=== PATIENT | male | born 1990 | race Two or more races ===

== ENCOUNTER 2022-11-10 15:14 | Emergency (ER) | payer OTHER ==
[~2022-11-10] VITALS: Ht 180.3 cm; Wt 91.2 kg
[2022-11-10 18:06] VITALS: BP 143/103; TEMP 98.8; O2SAT 98
== END 2022-11-10 18:06 ==
LOC: ER 15:24
DX: M25.532 Pain in left wrist (principal); M25.531 Pain in right wrist; M25.562 Pain in left knee; M25.561 Pain in right knee; F41.9 Anxiety disorder, unspecified; F32.A Depression, unspecified; Z60.2 Problems related to living alone
CPT/HCPCS: 73110; 73564-TC